=== PATIENT | male | born 1980 | race Hispanic/Latino ===

== ENCOUNTER 2023-09-19 18:09 | Emergency (ER) | payer SELFPAY ==
[2023-09-19 18:12] VITALS: BP 156/107; PULSE 65; RESP 16; TEMP 36.4; O2SAT 100; BMI 32.1
[2023-09-19] MEDS: Morphine 4 MG/ML Syringe IV (19:09)
[2023-09-19] MEDS: Ondansetron 4 MG/2 ML Vial IV (19:09)
[2023-09-19 19:13] LABS: Absolute Lymphocyte Count 2.55 X10^3/uL (0.83-4.51); Absolute Neutrophil Count 7.7 X10^3/uL (2.0-7.7); Basophil# 0.06 X10^3/uL; Basophil% 0.5 % (0-1); Eosinophil# 0.14 X10^3/uL; Eosinophils% 1.3 % (0-5); Hematocrit 44.8 % (40-54); Lymphocyte # 2.55 X10^3/ul (0.83-4.51); Lymphocyte % 22.8 % (19-41); Mean Corp Hgb Conc 35.7 g/dL (32-36); Mean Corpuscular Hgb 29.3 pg (27.0-32.0); Mean Corpuscular Volume 81.9 fL (80-94); Monocyte# 0.61 X10^3/uL; Monocyte% 5.5 % (0-10); NRBC Flagged by Analyzer 0 % (0-5); Neutrophil # 7.73 X10^3/uL (2.7-7.7); Neutrophil % 69.2 % (47-70); Platelet Count 343 K/mm3 (150-450); RBC Distribution Width CV 13.4 % (11.6-14.6); Red Blood Count 5.47 M/mm3 (4.6-6.2); White Blood Count 11.2 K/mm3 (4.4-11.0)
[2023-09-19 19:29] LABS: Anion Gap 8 (5-15); BUN 11 mg/dL (7-18); BUN/Creat Ratio 15.1 RATIO (10-20); Calcium,Total 8.8 mg/dL (8.5-10.1); Chloride 102 mmol/L (98-107); Creatinine, Serum 0.73 mg/dL (0.70-1.30); EST Glomerular Filtration Rate 124 mL/min (>60); Est Glom Filt Rate - Afr Amer 150 mL/min (>60); Estimated Creatinine Clearance 154.23 ml/min; Glucose 131 mg/dL (74-106); Potassium 3.3 mmol/L (3.5-5.1); Sodium Level 135 mmol/L (136-145); Troponin-I HS (w/2H Reflex) 4 pg/mL (3.0-78.0)
--- NOTE | 2023-09-19 19:39 | RAD_ITS ---
INDICATION: chest pain EXAMINATION/TECHNIQUE: X-RAY - XR Chest 1 View COMPARISON: None. FINDINGS: LINES/DEVICES: None. LUNGS: No consolidation, edema or effusion. No pneumothorax. MEDIASTINUM AND CARDIOVASCULAR STRUCTURES: Cardiac silhouette not enlarged. Central airways and mediastinal contour are unremarkable. BONES AND SOFT TISSUES: Unremarkable. RAD/Chest 1 View (Portable) IMPRESSION: No radiographic evidence of acute cardiopulmonary disease. Electronically Signed: Maciel Blount MD at 20:17 EST ,
--- NOTE | 2023-09-19 19:48 | ED.VIS.CHEST ---
HPI History of Present Illness Chief Complaint: Chest Pain Informant: patient Onset/Context/Timing Onset: Today and Hours (0.5) Activity at onset: gradual Timing: Continuous Quality: Positive for Sharp Location: Left Chest Worsened By: Nothing Relieved By: Nothing Associated Symptoms: Positive for Nausea, Vomiting, Diaphoresis and Palpitations; Negative for Dyspnea, Cough, Fever, Lightheadedness or Acid Reflux Narrative Narrative: Patient presents with chest pain that began approximately 30 minutes prior to arrival. Patient states it has gradually gotten worse. Patient admits to some nausea and vomiting. Patient admits to some diaphoresis and some palpitations where he feels like his heart is beating hard. Patient states his pain is mainly over the left chest. Patient describes it as sharp. Patient states has been constant for the last 30 minutes. Patient states nothing makes it better nothing makes it worse. Patient admits to drinking a lot of alcohol. Patient denies any cardiac or PE risk factors. CVD Risk Factors: Negative for Hypertension, Diabetes, Hypercholesterolemia, Family History 1' </=55 or Smoking PE Risk Factors: Negative for Recent Travel/Surgery, Recent Immobilization, Prior DVT or PE, Cancer or OCP + Smoking + >/=35 PFSH PFSH Medical History no medical history no medical history Home Medications omeprazole 20 mg capsule,delayed release 20 mg PO DAILY #30 CAPSULES 09/19/23 [Rx Last Taken Unknown] ondansetron 4 mg disintegrating tablet 4 mg PO Q8H PRN PRN Nausea #10 tabs 09/19/23 [Rx Last Taken Unknown] Allergy/AdvReac Type Severity Reaction Status Date / Time No Known Allergies Allergy Verified 09/19/23 18:21 Surgical History no surgical history no surgical history Social History (Updated 09/19/23 @ 19:[address] Nitesh Goodson, DO) Smoking Status: Never smoker alcohol intake: current alcohol intake frequency: 3 or more drinks per day Alcohol type: hard liquor ROS ROS ED Constitutional Constitutional ED: Denies chills or fever(s) Eyes Eyes: Denies blurry vision or change in vision ENT ENT ED: Denies rhinorrhea or sore throat Cardiovascular Cardiovascular: Reports as per HPI and chest pain; Denies palpitations Respiratory/Chest Respiratory/Chest: Denies cough or dyspnea Gastrointestinal Gastrointestinal: Reports nausea and vomiting Genitourinary Genitourinary ED: Denies dysuria or hematuria Musculoskeletal Musculoskeletal: Denies back pain or neck pain Integumentary Denies abscess or rash Neurologic Neurologic: Reports headache(s); Denies weakness Allergic/Immunologic Allergic/Immunologic ED: Denies mouth swelling or urticaria EXAM Physical Exam Const Vital Signs: 09/19/23 18:12 09/19/23 19:13 09/19/23 21:40 Temperature 97.5 F L Temperature Source Oral Pulse Rate 65 62 Respiratory Rate 16 22 H Blood Pressure 156/107 H 152/98 H Blood Pressure Mean 123 116 Pulse Ox 100 98 Oxygen Delivery Method Room Air Room Air Room Air 09/19/23 22:38 Temperature Temperature Source Pulse Rate 67 Respiratory Rate 19 H Blood Pressure 150/94 H Blood Pressure Mean 112 Pulse Ox 97 Oxygen Delivery Method Positive well nourished, well developed and obese General Appearance ED: well developed and NAD Nutritional Appearance: obese HEENT Reports moist mucous membranes Neck supple and no JVD Resp normal respiratory effort and clear to auscultation bilaterally Cardio regular rate and regular rhythm GI soft to palpation and non-distended GI Narrative: There is some mild epigastric and left upper quadrant tenderness. There is no rebound or guarding noted. Neuro oriented x3, CN's II-XII intact bilaterally and no sensory deficits noted Sensorium / Orientation: awake and alert Motor Exam: strength 5/5 throughout Psych mental status grossly normal Heart Score History: Moderately Suspicious ECG: Normal Age: </= 45 years Risk Factors: No Risk Factors Troponin: </= Normal Limit Score: 1 MDM MDM MDM Narrative Medical decision making narrative: Differential diagnosis includes gastritis, gastroesophageal reflux disease, cardiac dysrhythmia, cardiac ischemia, pneumonia, pneumothorax, peptic ulcer disease, pancreatitis, cholecystitis, cholelithiasis, and alcoholic liver disease. CBC will be obtained to assess for leukocytosis and anemia. Basic metabolic profile will be obtained to assess for electrolyte abnormality and renal function. Hepatic profile will be obtained to assess for hepatic function. Lipase will be obtained to assess for pancreatitis. High-sensitivity troponin will be obtained to assess for cardiac ischemia. 2-hour repeat high-sensitivity troponin will be obtained to assess for ongoing cardiac ischemia. EKG will be obtained to assess for cardiac dysrhythmia and cardiac ischemia. Chest x-ray will be obtained to assess for pneumonia and pneumothorax. Lab Data Attestation: I reviewed the patient's lab results. Lab results narrative: CBC was reviewed. There is a mild leukocytosis of 11.2. Remainder is within normal limits. Basic metabolic profile was reviewed. Potassium slightly low at 3.3. Glucose was slightly elevated at 131. The remainder is within normal limits. High-sensitivity troponin was reviewed and was normal at 4. Hepatic profile was reviewed. Total bilirubin was slightly elevated at 1.6 and direct bilirubin was slightly elevated at 0.33. AST was 39 and ALT was 64. Alkaline phosphatase was slightly elevated at 156. Lipase was reviewed and was within normal limits. 2-hour repeat high-sensitivity troponin was reviewed and was normal at 4. Labs: Laboratory Results - last 24 hr 09/19/23 09/19/23 09/19/23 14:00 19:00 21:10 WBC 11.2 H RBC 5.47 Hgb 16.0 Hct 44.8 MCV 81.9 MCH 29.3 MCHC 35.7 RDW Std Deviation 40.0 RDW Coeff of Kris 13.4 Plt Count 343 MPV 11.0 Immature Gran % (Auto) 0.700 Neut % (Auto) 69.2 Lymph % (Auto) 22.8 [place] % (Auto) 5.5 Eos % (Auto) 1.3 Baso % (Auto) 0.5 Absolute Neuts (auto) 7.7 Absolute Lymphs (auto) 2.55 Nucleated RBC % 0 PT 12.7 INR 1.0 APTT 25.7 Sodium 135 L Potassium 3.3 L Chloride 102 Carbon Dioxide 25.0 Anion Gap 8 BUN 11 Creatinine 0.73 Estim Creat Clear Calc 154.23 Est GFR (MDRD) Af Amer 150 Est GFR (MDRD) Non-Af 124 BUN/Creatinine Ratio 15.1 Glucose 131 H Calcium 8.8 Total Bilirubin 1.60 H Direct Bilirubin 0.33 H AST 39 H ALT 64 H Alkaline Phosphatase 156 H Troponin I High Sens 4 4 Total Protein 7.7 Albumin 3.9 Globulin 3.8 Lipase 30 POC Glucose 09/19/23 22:01 WBC RBC Hgb Hct MCV MCH MCHC RDW Std Deviation RDW Coeff of Kris Plt Count MPV Immature Gran % (Auto) Neut % (Auto) Lymph % (Auto) [place] % (Auto) Eos % (Auto) Baso % (Auto) Absolute Neuts (auto) Absolute Lymphs (auto) Nucleated RBC % PT INR APTT Sodium Potassium Chloride Carbon Dioxide Anion Gap BUN Creatinine Estim Creat Clear Calc Est GFR (MDRD) Af Amer Est GFR (MDRD) Non-Af BUN/Creatinine Ratio Glucose Calcium Total Bilirubin Direct Bilirubin AST ALT Alkaline Phosphatase Troponin I High Sens Total Protein Albumin Globulin Lipase POC Glucose 136 H Radiography Diagnostic Testing: Clinical Impression(s) from Imaging Studies Chest X-Ray 09/19/23 19:39 IMPRESSION: No radiographic evidence of acute cardiopulmonary disease. Electronically Signed: Maciel Blount MD at 20:17 EST , Abdomen/Pelvis CT 09/19/23 20:31 IMPRESSION: No acute intra-abdominal process is appreciated. No appendicitis. No bowel obstruction. Electronically Signed: Maciel Blount MD at 21:31 EST , EKG Initial EKG: Attestation: I personally reviewed and interpreted this EKG as follows: Interpretation: Sinus Rhythm (67) and No Acute Injury Pattern Comments: EKG was obtained. On my independent interpretation, it showed a normal sinus rhythm with a rate of 67. NH interval, QRS interval, and QTc intervals were all normal. [place] was normal. There are no acute ST or T wave changes. Prior EKG tracings: not available for review Prior: No Prior Treatment and Re-Evaluation :: Patient was given morphine and Zofran here. Patient was feeling better on reevaluation. Patient was advised of his findings. Patient has a HEART score of 1. Patient was advised that this is low risk for acute cardiac event. Patient was advised that this is most likely alcoholic gastritis. Patient was given prescriptions for Zofran and omeprazole. Patient was instructed to start with a bland diet and advance as tolerated. Patient was instructed to stop drinking. Patient was instructed to follow-up with his primary care physician in 5 to 7 days. Patient understood and was agreeable with the plan. All questions were answered. Discharge Plan Triage Chief Complaint: Chest Pain ED Provider: Nitesh Goodson Dx/Rx/DC Orders Clinical Impression: Alcoholic gastritis, Chest pain Instructions: ED Chest Pain, Uncertain Cause, ED Gastritis (Adult) Prescriptions: New omeprazole [omeprazole] 20 mg capsule,delayed release(DR/EC) 20 mg PO DAILY Qty: 30 0RF ondansetron [ondansetron] 4 mg tablet,disintegrating 4 mg PO Q8H PRN PRN (Reason: Nausea) Qty: 10 0RF Primary Care Provider: Care Physician,No Primary Referrals: Rose Mary Rae MD [Med Staff - Impression Printer] - 3-5 Days Care Physician,No Primary [Primary Care Provider] - Disposition Disposition: Home, Self Care Discharge Date/Time: 09/19/23 22:35
[2023-09-19 20:10] LABS: Prothrombin Time (Protime)PT. 12.7 SECONDS (11.7-14.9)
[2023-09-19 20:11] LABS: Partial Thromboplast Time 25.7 Seconds (24.1-36.2)
[2023-09-19 20:21] LABS: AST(SGOT) 39 U/L (15-37); Alanine Aminotransfer ALT/SGPT 64 U/L (16-61); Albumin, Serum 3.9 g/dL (3.2-5.0); Alkaline Phosphatase 156 U/L (45-117); Bilirubin, Direct 0.33 mg/dL (0.00-0.30); Globulin 3.8 g/dL (2.2-4.2); Lipase 30 U/L (13-75); Protein, Total 7.7 g/dL (6.4-8.2)
--- NOTE | 2023-09-19 20:31 | CT_ITS ---
INDICATION: Abdominal pain EXAMINATION: CT ABDOMEN AND PELVIS WITH CONTRAST - CT Abdomen And Pelvis W/ Contrast Injection TECHNIQUE: Helically acquired images were obtained of the abdomen and pelvis following IV contrast. A radiation dose optimization technique was used for this scan. IV Contrast dosage and agent: 100 cc [id number] Oral contrast: None. COMPARISON: None. FINDINGS: LOWER CHEST: Basilar atelectasis. No cardiomegaly or pericardial effusion. LIVER: Homogeneous. No focal mass. GALLBLADDER AND BILIARY TREE: No calcified gallstones. No gallbladder distension or wall edema. No intra- or extrahepatic biliary ductal dilation. PANCREAS: No focal cystic or solid mass. SPLEEN: Normal size without focal cystic or solid mass. ADRENAL GLANDS: No nodules. KIDNEYS AND URETERS: Normal renal size and position. No hydronephrosis. PERITONEUM: No ascites or free air. No other fluid collection. BOWEL: No evidence of acute appendicitis. No stomach or bowel distension. No focal inflammatory change. LYMPH NODES: No enlarged mesenteric or retroperitoneal lymph nodes. VESSELS: Aorta is non-dilated. URINARY BLADDER: Unremarkable. REPRODUCTIVE ORGANS: No pelvic masses. ABDOMINAL WALL: No discrete abdominal or pelvic wall hernia. BONES: No lytic or blastic abnormality. L2 compression deformity with chronic appearance. CT/Abdomen/Pelvis W IV Cont ONLY IMPRESSION: No acute intra-abdominal process is appreciated. No appendicitis. No bowel obstruction. Electronically Signed: Maciel Blount MD at 21:31 EST ,
[2023-09-19 21:06] LABS: Reflex Troponin-HS? (from REC) Y
[2023-09-19 21:37] LABS: Troponin-I HS 4 pg/mL (3.0-78.0)
[2023-09-19 21:40] VITALS: BP 152/98; PULSE 62; RESP 22; O2SAT 98
[2023-09-19 22:18] LABS: Bedside Glucose 136 mg/dL (74-106)
[2023-09-19 22:38] VITALS: BP 150/94; PULSE 67; RESP 19; O2SAT 97
--- NOTE | 2023-09-19 22:38 | ED.RN ---
Pt requesting to stay the night in the hospital. RN explains that clinically there is no reason for admission. Pt does not have a ride home @ this time. Pt states he lives in [place].
== END 2023-09-19 22:35 | disposition home or self-care (01) ==
PROVIDERS: Emergency Provider Emergency Medicine; Visit Provider Emergency Medicine
DX: R07.9 Chest pain, unspecified (principal); K29.20 Alcoholic gastritis without bleeding
CPT/HCPCS: 71045; 74177; 80048; 80076; 82962; 83690; 84484; 85025; 85610; 85730; 93005; 96374; 96375; 99283; Q9967; A4216; J2405